=== PATIENT | male | born 1945 | race African-American/Black ===

== ENCOUNTER 2020-08-21 05:30 | Inpatient (IN) ==
[2020-08-21] MEDS ORDERED: cefTRIAXone 1,000 MG in Water for inj. (sterile) 10 ML IVP ONE (05:42)
[2020-08-21] MEDS ORDERED: Azithromycin 500 MG in 0.9 % Sodium Chloride 250 ML IVPB ONE (05:42)
[2020-08-21 06:06] LABS: Basophils % 0.1 %; Hematocrit 47.4 % (37.5-50.1); Hemoglobin 15.2 g/dL (12.9-16.9); Immature Granulocytes % 0.3 % (0-4); Lymphocytes % 11.5 %; Mean Corpuscular HGB Conc 32.1 g/dL (31.6-35.5); Mean Corpuscular Hemoglobin 30.2 pg (28.0-33.3); Mean Corpuscular Volume 94.2 fL (83.0-100.0); Mean Platelet Volume 10.5 fL (9.4-12.4); Monocytes # 0.8 K/mcL (0.0-1.3); Platelet Count 299 K/mcL (140-400); Red Blood Count 5.03 M/mcL (4.19-5.50); Red Cell Distribution Width 14.6 % (11.5-14.5); Segmented Neutrophils % 79.1 %; White Blood Count 8.8 K/mcL (4.3-11.1)
[2020-08-21 06:18] LABS: Prothrombin Time 11.7 Seconds (9.4-12.1)
[2020-08-21 06:20] LABS: Activated Partial Thrombo Time 28.3 Seconds (26.0-36.0)
[2020-08-21 06:27] LABS: Alanine Aminotransferase 41 Units/L (7-52); Albumin 4.2 g/dL (3.5-5.7); Alkaline Phosphatase 126 Units/L (34-104); Aspartate Amino Transferase 61 Units/L (13-39); BUN/Creatinine Ratio 29 (6-26); Bilirubin,Direct 0.1 mg/dL (0.0-0.2); Bilirubin,Indirect 0.6 mg/dL (0.0-1.0); Bilirubin,Total 0.7 mg/dL (0.3-1.0); Blood Urea Nitrogen 35 mg/dL (8-23); Calcium 9.9 mg/dL (8.6-10.3); Carbon Dioxide 23 mEq/L (23-29); Chloride 106 mEq/L (98-107); Globulin 4.2 g/dL (2.4-3.5); Glucose 134 mg/dL (70-105); Lactate Dehydrogenase 441 Units/L (140-271); Magnesium 2.6 mg/dL (1.6-2.6); Osmolality,Calculated 302 (280-300); Phosphorous 3.9 mg/dL (2.7-4.5); Potassium 5.1 mEq/L (3.5-5.1); Sodium 141 mEq/L (136-145); Total Protein 8.4 g/dL (6.4-8.9); Troponin I < 0.03 ng/mL (< 0.04); eGFR For African Americans > 60 (> 60); eGFR For Non-African Americans 58 (> 60)
[2020-08-21 06:34] LABS: ABG Base Excess 1 mEq/L (-2 to 3); ABG HCO3 29 mEq/L (21-27); ABG Oxygen Saturation 28 % (95-98); ABG PCO2 56 mmHg (35-45); ABG PH 7.32 pH Units (7.32-7.45); ABG PO2 21 mmHg (85-104); ABG TCO2 31 mEq/L (20-26)
[2020-08-21 06:39] LABS: Platelet Estimate Normal (Normal)
[2020-08-21 06:45] LABS: Ferritin 654 ng/mL (20-250)
[2020-08-21] MEDS ORDERED: methylPREDNISolone 125 MG/2 ML VIAL IVP ONE (06:47)
[2020-08-21] MEDS ORDERED: 0.9 % Sodium Chloride 1,000 ML IVC ONE (08:14)
[2020-08-21 08:38] LABS: ABG Base Excess 0 mEq/L (-2 to 3); ABG HCO3 25 mEq/L (21-27); ABG Oxygen Saturation 99 % (95-98); ABG PCO2 43 mmHg (35-45); ABG PH 7.37 pH Units (7.32-7.45); ABG PO2 120 mmHg (85-104); ABG TCO2 27 mEq/L (20-26); Blood Gas Pressure Support 12 cm H2O
[2020-08-21 08:45] LABS: C-Reactive Protein 49 mg/L (Less than 10)
[2020-08-21] MEDS ORDERED: Acetaminophen 650 MG RECTAL SUPP RC PRN (14:47)
[2020-08-21] MEDS ORDERED: Naloxone 0.4 MG/ML INJ IVP PRN (15:01)
[2020-08-21] MEDS ORDERED: HALOPERIDOL DECANOATE 200 MG IM SCH (15:15)
[2020-08-21] MEDS: Cefepime HCl 2,000 MG in Water for inj. (sterile) 20 ML IVP SCH (15:48)
[2020-08-21] MEDS: Doxycycline 100 MG in 0.9 % Sodium Chloride Mini Bag 100 ML IVPB SCH ×2 (15:58→21:24)
[2020-08-21] MEDS ORDERED: Piperacillin/Tazobactam 3.375 GM in 0.9 % Sodium Chloride Mini Bag 100 ML IVPB SCH (16:00)
[2020-08-21] MEDS ORDERED: Albuterol 2.5 MG/3 ML NEBULIZER IH SCH (16:00)
[2020-08-21] MEDS ORDERED: *HR* Metoprolol 5 MG/5 ML VIAL IVP PRN (16:22)
[2020-08-21] MEDS ORDERED: *HR* Dextrose 50 % in Water (Vial) 50 ML VIAL IVP PRN (17:55)
[2020-08-21] MEDS ORDERED: Dextrose Gel 15 GM/37.5 ML TUBE PO PRN ×2 (17:55)
[2020-08-21] MEDS ORDERED: D5% in Water 1,000 ML IVC PRN (17:55)
[2020-08-21] MEDS: Haloperidol Lactate 5 MG/ML VIAL IVP PRN (17:56)
[2020-08-21] MEDS: Insulin LISPRO 300 UNITS/3 ML VIAL SQ SCH (18:07)
[2020-08-21] MEDS: *HR* LORazepam 2 MG/ML VIAL IVP PRN (18:10)
[2020-08-21] MEDS: Dexmedetomidine HCl 400 MCG/100 ML MLS IVC SCH (19:31)
[2020-08-21] MEDS ORDERED: NON-FORMULARY MEDICATION 1 EACH EACH (Quetiapine Fumarate [Seroquel] 400 MG) PO SCH (21:00)
[2020-08-21] MEDS: Dorzolamide OPTH 10 ML BOTTLE BOTH EYES SCH (21:25)
[2020-08-21] MEDS: QUEtiapine Fumarate 100 MG, QUEtiapine Fumarate 300 MG PO SCH (22:06)
[2020-08-21] MEDS: *HR* LORazepam 0.5 MG TABLET PO SCH (22:06)
[2020-08-21] MEDS: Melatonin 3 MG TABLET PO SCH (22:06)
[2020-08-22] MEDS: Insulin LISPRO 300 UNITS/3 ML VIAL SQ SCH ×5 (00:18→23:58)
[2020-08-22] MEDS ORDERED: 0.9 % Sodium Chloride 250 ML ONE (00:53)
[2020-08-22] MEDS: Cefepime HCl 2,000 MG in Water for inj. (sterile) 20 ML IVP SCH ×3 (05:35→23:34)
[2020-08-22 05:58] LABS: Basophils # 0.1 K/mcL (0.0-0.2); Basophils % 1.1 %; Eosinophils % 0.1 %; Hematocrit 45.9 % (37.5-50.1); Hemoglobin 14.7 g/dL (12.9-16.9); Immature Granulocytes % 0.5 % (0-4); Lymphocytes # 1.4 K/mcL (0.6-4.6); Lymphocytes % 16.3 %; Mean Corpuscular Hemoglobin 30.3 pg (28.0-33.3); Mean Corpuscular Volume 94.6 fL (83.0-100.0); Mean Platelet Volume 10.3 fL (9.4-12.4); Monocytes # 0.6 K/mcL (0.0-1.3); Monocytes % 7.2 %; Neutrophils # 6.4 K/mcL (1.6-8.9); Platelet Count 212 K/mcL (140-400); Red Blood Count 4.85 M/mcL (4.19-5.50); Red Cell Distribution Width 14.6 % (11.5-14.5); Segmented Neutrophils % 74.8 %; White Blood Count 8.6 K/mcL (4.3-11.1)
[2020-08-22 06:19] LABS: INR 1.1; Prothrombin Time 12.3 Seconds (9.4-12.1)
[2020-08-22 06:37] LABS: Alanine Aminotransferase 41 Units/L (7-52); Albumin 3.7 g/dL (3.5-5.7); Alkaline Phosphatase 111 Units/L (34-104); Aspartate Amino Transferase 59 Units/L (13-39); BUN/Creatinine Ratio 32 (6-26); Bilirubin,Total 0.5 mg/dL (0.3-1.0); Blood Urea Nitrogen 32 mg/dL (8-23); Calcium 9.3 mg/dL (8.6-10.3); Carbon Dioxide 18 mEq/L (23-29); Chloride 111 mEq/L (98-107); Ferritin 542 ng/mL (20-250); Globulin 3.7 g/dL (2.4-3.5); Glucose 83 mg/dL (70-105); Osmolality,Calculated 298 (280-300); Potassium 4.6 mEq/L (3.5-5.1); Sodium 141 mEq/L (136-145); Total Protein 7.4 g/dL (6.4-8.9); eGFR For African Americans > 60 (> 60); eGFR For Non-African Americans > 60 (> 60)
[2020-08-22 06:44] LABS: Platelet Estimate Normal (Normal); Reactive Lymphocytes Present (Not Present)
[2020-08-22] MEDS: PARoxetine 30 MG TABLET PO SCH (08:48)
[2020-08-22] MEDS: Doxycycline 100 MG in 0.9 % Sodium Chloride Mini Bag 100 ML IVPB SCH ×2 (08:48→20:48)
[2020-08-22] MEDS: *HR* LORazepam 0.5 MG TABLET PO SCH ×3 (08:48→20:42)
[2020-08-22] MEDS: Pyridoxine (B-6) 50 MG TABLET PO SCH (08:49)
[2020-08-22] MEDS ORDERED: Doxycycline 100 MG in 0.9 % Sodium Chloride Mini Bag 100 ML IVPB SCH (09:00)
[2020-08-22] MEDS ORDERED: Dexamethasone 4 MG/ML VIAL IVP SCH (09:00)
[2020-08-22] MEDS: Dorzolamide OPTH 10 ML BOTTLE BOTH EYES SCH ×3 (09:08→20:48)
[2020-08-22] MEDS: QUEtiapine Fumarate 100 MG, QUEtiapine Fumarate 300 MG PO SCH ×2 (11:50→20:42)
[2020-08-22] MEDS ORDERED: NON-FORMULARY MEDICATION 1 EACH EACH (Quetiapine Fumarate [Seroquel] 400 MG) PO SCH (12:00)
[2020-08-22] MEDS: *HR* LORazepam 2 MG/ML VIAL IVP PRN ×3 (12:39→22:36)
[2020-08-22] MEDS: Dexmedetomidine HCl 400 MCG/100 ML MLS IVC SCH (14:08)
[2020-08-22] MEDS ORDERED: *HR* Enoxaparin 40 MG/0.4 ML SYRINGE SQ SCH (14:50)
[2020-08-22] MEDS ORDERED: *HR* Enoxaparin 30 MG/0.3 ML SYRINGE SQ ONE (17:45)
[2020-08-22] MEDS: Melatonin 3 MG TABLET PO SCH (20:42)
[2020-08-22] MEDS ORDERED: Furosemide 40 MG/4 ML VIAL IVP ONE (21:22)
[2020-08-23 04:27] LABS: ABG Base Excess -2 mEq/L (-2 to 3); ABG HCO3 22 mEq/L (21-27); ABG Oxygen Saturation 92 % (95-98); ABG PCO2 36 mmHg (35-45); ABG PH 7.39 pH Units (7.32-7.45); ABG PO2 65 mmHg (85-104); ABG TCO2 23 mEq/L (20-26)
[2020-08-23] MEDS: Insulin LISPRO 300 UNITS/3 ML VIAL SQ SCH ×3 (04:55→17:28)
[2020-08-23] MEDS: *HR* Enoxaparin 80 MG/0.8 ML SYRINGE SQ SCH ×2 (05:17→17:24)
[2020-08-23] MEDS: Pyridoxine (B-6) 50 MG TABLET PO SCH (07:42)
[2020-08-23] MEDS: PARoxetine 30 MG TABLET PO SCH (07:42)
[2020-08-23] MEDS: *HR* LORazepam 0.5 MG TABLET PO SCH ×3 (07:43→20:55)
[2020-08-23] MEDS: Dexamethasone Sodium Phos/PF 10 MG/ML VIAL IVP SCH (07:52)
[2020-08-23] MEDS: Cefepime HCl 2,000 MG in Water for inj. (sterile) 20 ML IVP SCH ×3 (07:52→23:44)
[2020-08-23] MEDS: Doxycycline 100 MG in 0.9 % Sodium Chloride Mini Bag 100 ML IVPB SCH ×2 (07:52→21:01)
[2020-08-23] MEDS: Haloperidol Lactate 5 MG/ML VIAL IVP PRN ×3 (07:53→20:07)
[2020-08-23] MEDS: *HR* LORazepam 2 MG/ML VIAL IVP PRN ×4 (07:53→20:07)
[2020-08-23] MEDS: Dorzolamide OPTH 10 ML BOTTLE BOTH EYES SCH ×3 (08:24→21:13)
[2020-08-23 10:37] LABS: Hemoglobin 14.6 g/dL (12.9-16.9); Mean Corpuscular HGB Conc 32.4 g/dL (31.6-35.5); Mean Corpuscular Hemoglobin 29.6 pg (28.0-33.3); Mean Corpuscular Volume 91.3 fL (83.0-100.0); Mean Platelet Volume 10.5 fL (9.4-12.4); Platelet Count 228 K/mcL (140-400); Red Blood Count 4.93 M/mcL (4.19-5.50); Red Cell Distribution Width 14.3 % (11.5-14.5); White Blood Count 10.1 K/mcL (4.3-11.1)
[2020-08-23 10:46] LABS: INR 1.2; Prothrombin Time 13.5 Seconds (9.4-12.1)
[2020-08-23 11:05] LABS: Alanine Aminotransferase 34 Units/L (7-52); Albumin 3.7 g/dL (3.5-5.7); Alkaline Phosphatase 113 Units/L (34-104); Aspartate Amino Transferase 53 Units/L (13-39); BUN/Creatinine Ratio 40 (6-26); Bilirubin,Total 0.6 mg/dL (0.3-1.0); Blood Urea Nitrogen 46 mg/dL (8-23); Calcium 9.3 mg/dL (8.6-10.3); Carbon Dioxide 18 mEq/L (23-29); Chloride 110 mEq/L (98-107); Globulin 3.8 g/dL (2.4-3.5); Glucose 134 mg/dL (70-105); Osmolality,Calculated 302 (280-300); Sodium 139 mEq/L (136-145); Total Protein 7.5 g/dL (6.4-8.9); eGFR For African Americans > 60 (> 60); eGFR For Non-African Americans > 60 (> 60)
[2020-08-23] MEDS: QUEtiapine Fumarate 100 MG, QUEtiapine Fumarate 300 MG PO SCH ×2 (11:46→20:55)
[2020-08-23 11:49] LABS: Lymphocytes # 1.8 K/mcL (0.6-4.6); Monocytes # 0.4 K/mcL (0.0-1.3); Neutrophils # 7.9 K/mcL (1.6-8.9)
[2020-08-23 11:50] LABS: Platelet Estimate Normal (Normal)
[2020-08-23] MEDS: Furosemide 40 MG/4 ML VIAL IVP SCH (16:24)
[2020-08-23] MEDS: Dexmedetomidine HCl 400 MCG/100 ML MLS IVC SCH ×2 (17:22→22:14)
[2020-08-23] MEDS: Melatonin 3 MG TABLET PO SCH (20:55)
[2020-08-24] MEDS: Insulin LISPRO 300 UNITS/3 ML VIAL SQ SCH ×4 (00:14→18:48)
[2020-08-24] MEDS: *HR* LORazepam 2 MG/ML VIAL IVP PRN ×2 (00:16→08:21)
[2020-08-24] MEDS: Haloperidol Lactate 5 MG/ML VIAL IVP PRN ×2 (02:05→08:20)
[2020-08-24 04:28] LABS: ABG Base Excess -4 mEq/L (-2 to 3); ABG HCO3 20 mEq/L (21-27); ABG Oxygen Saturation 84 % (95-98); ABG PCO2 33 mmHg (35-45); ABG PH 7.39 pH Units (7.32-7.45); ABG PO2 48 mmHg (85-104); ABG TCO2 21 mEq/L (20-26)
[2020-08-24] MEDS: *HR* Enoxaparin 80 MG/0.8 ML SYRINGE SQ SCH ×2 (05:33→19:10)
[2020-08-24 07:10] LABS: Basophils # 0.1 K/mcL (0.0-0.2); Basophils % 0.8 %; Hematocrit 48.9 % (37.5-50.1); Hemoglobin 15.8 g/dL (12.9-16.9); Immature Granulocytes % 0.5 % (0-4); Lymphocytes # 1.4 K/mcL (0.6-4.6); Lymphocytes % 13.6 %; Mean Corpuscular HGB Conc 32.3 g/dL (31.6-35.5); Mean Corpuscular Hemoglobin 29.4 pg (28.0-33.3); Mean Corpuscular Volume 91.1 fL (83.0-100.0); Mean Platelet Volume 10.5 fL (9.4-12.4); Monocytes # 0.7 K/mcL (0.0-1.3); Neutrophils # 8.3 K/mcL (1.6-8.9); Platelet Count 294 K/mcL (140-400); Red Blood Count 5.37 M/mcL (4.19-5.50); Red Cell Distribution Width 14.4 % (11.5-14.5); Segmented Neutrophils % 78.1 %; White Blood Count 10.6 K/mcL (4.3-11.1)
[2020-08-24 07:33] LABS: Albumin 4.2 g/dL (3.5-5.7); Bilirubin,Total 0.6 mg/dL (0.3-1.0); Globulin 4.4 g/dL (2.4-3.5); Potassium 4.9 mEq/L (3.5-5.1); Total Protein 8.6 g/dL (6.4-8.9)
[2020-08-24] MEDS: Doxycycline 100 MG in 0.9 % Sodium Chloride Mini Bag 100 ML IVPB SCH ×2 (08:19→20:21)
[2020-08-24] MEDS: Cefepime HCl 2,000 MG in Water for inj. (sterile) 20 ML IVP SCH ×2 (08:19→20:20)
[2020-08-24] MEDS: Furosemide 40 MG/4 ML VIAL IVP SCH (08:19)
[2020-08-24] MEDS: Dexamethasone Sodium Phos/PF 10 MG/ML VIAL IVP SCH (08:20)
[2020-08-24] MEDS: Dorzolamide OPTH 10 ML BOTTLE BOTH EYES SCH ×3 (09:00→22:23)
[2020-08-24] MEDS: *HR* LORazepam 0.5 MG TABLET PO SCH ×3 (10:54→20:16)
[2020-08-24] MEDS: PARoxetine 30 MG TABLET PO SCH (10:55)
[2020-08-24] MEDS: Pyridoxine (B-6) 50 MG TABLET PO SCH (10:57)
[2020-08-24] MEDS: QUEtiapine Fumarate 100 MG, QUEtiapine Fumarate 300 MG PO SCH ×2 (14:40→20:17)
[2020-08-24] MEDS: Dexmedetomidine HCl 400 MCG/100 ML MLS IVC SCH (18:47)
[2020-08-24] MEDS: Melatonin 3 MG TABLET PO SCH (20:17)
[2020-08-25] MEDS: Insulin LISPRO 300 UNITS/3 ML VIAL SQ SCH ×5 (00:46→23:51)
[2020-08-25] MEDS: *HR* Enoxaparin 80 MG/0.8 ML SYRINGE SQ SCH ×2 (05:35→17:10)
[2020-08-25 07:23] LABS: Basophils % 0.2 %; Hematocrit 51.8 % (37.5-50.1); Hemoglobin 16.6 g/dL (12.9-16.9); Immature Granulocytes % 0.3 % (0-4); Lymphocytes # 1.1 K/mcL (0.6-4.6); Lymphocytes % 9.5 %; Mean Corpuscular Hemoglobin 30.1 pg (28.0-33.3); Mean Corpuscular Volume 93.8 fL (83.0-100.0); Mean Platelet Volume 10.3 fL (9.4-12.4); Monocytes # 0.8 K/mcL (0.0-1.3); Monocytes % 6.4 %; Neutrophils # 9.8 K/mcL (1.6-8.9); Platelet Count 335 K/mcL (140-400); Red Blood Count 5.52 M/mcL (4.19-5.50); Red Cell Distribution Width 14.4 % (11.5-14.5); Segmented Neutrophils % 83.6 %; White Blood Count 11.7 K/mcL (4.3-11.1)
[2020-08-25 07:29] LABS: INR 1.2; Prothrombin Time 13.4 Seconds (9.4-12.1)
[2020-08-25] MEDS: Furosemide 40 MG/4 ML VIAL IVP SCH (07:43)
[2020-08-25] MEDS: Cefepime HCl 2,000 MG in Water for inj. (sterile) 20 ML IVP SCH ×2 (07:43→20:45)
[2020-08-25] MEDS: Dexamethasone Sodium Phos/PF 10 MG/ML VIAL IVP SCH (07:43)
[2020-08-25] MEDS: Doxycycline 100 MG in 0.9 % Sodium Chloride Mini Bag 100 ML IVPB SCH ×2 (07:44→20:44)
[2020-08-25 07:45] LABS: Albumin 4.1 g/dL (3.5-5.7); Bilirubin,Total 0.6 mg/dL (0.3-1.0); Calcium 9.8 mg/dL (8.6-10.3); Globulin 4.2 g/dL (2.4-3.5); Potassium 4.9 mEq/L (3.5-5.1); Total Protein 8.3 g/dL (6.4-8.9)
[2020-08-25] MEDS: *HR* LORazepam 0.5 MG TABLET PO SCH ×3 (07:45→19:16)
[2020-08-25] MEDS: QUEtiapine Fumarate 100 MG, QUEtiapine Fumarate 300 MG PO SCH ×2 (07:46→19:16)
[2020-08-25] MEDS: Pyridoxine (B-6) 50 MG TABLET PO SCH (07:46)
[2020-08-25] MEDS: Dorzolamide OPTH 10 ML BOTTLE BOTH EYES SCH ×3 (07:46→21:08)
[2020-08-25] MEDS: PARoxetine 30 MG TABLET PO SCH (07:46)
[2020-08-25] MEDS: Dexmedetomidine HCl 400 MCG/100 ML MLS IVC SCH ×2 (14:55→23:49)
[2020-08-25] MEDS: Melatonin 3 MG TABLET PO SCH (19:16)
[2020-08-25] MEDS: *HR* LORazepam 2 MG/ML VIAL IVP PRN (19:22)
[2020-08-26 04:50] LABS: VBG Ionized Calcium 1.18 mmol/L (1.15-1.35)
[2020-08-26 05:05] LABS: Basophils % 0.2 %; Eosinophils % 0.1 %; Hematocrit 48.6 % (37.5-50.1); Hemoglobin 15.7 g/dL (12.9-16.9); Immature Granulocytes % 0.5 % (0-4); Lymphocytes # 1.4 K/mcL (0.6-4.6); Lymphocytes % 13.7 %; Mean Corpuscular HGB Conc 32.3 g/dL (31.6-35.5); Mean Corpuscular Hemoglobin 30.2 pg (28.0-33.3); Mean Corpuscular Volume 93.5 fL (83.0-100.0); Mean Platelet Volume 10.7 fL (9.4-12.4); Monocytes # 0.5 K/mcL (0.0-1.3); Monocytes % 5.3 %; Neutrophils # 8.2 K/mcL (1.6-8.9); Platelet Count 299 K/mcL (140-400); Red Cell Distribution Width 14.5 % (11.5-14.5); Segmented Neutrophils % 80.2 %; White Blood Count 10.2 K/mcL (4.3-11.1)
[2020-08-26 05:18] LABS: Alanine Aminotransferase 28 Units/L (7-52); Albumin 3.7 g/dL (3.5-5.7); Albumin/Globulin Ratio 0.9 (1.1-2.2); Alkaline Phosphatase 110 Units/L (34-104); Aspartate Amino Transferase 29 Units/L (13-39); BUN/Creatinine Ratio 61 (6-26); Bilirubin,Total 0.5 mg/dL (0.3-1.0); Blood Urea Nitrogen 79 mg/dL (8-23); Calcium 9.7 mg/dL (8.6-10.3); Carbon Dioxide 18 mEq/L (23-29); Chloride 119 mEq/L (98-107); Globulin 4.1 g/dL (2.4-3.5); Glucose 204 mg/dL (70-105); Magnesium 3.4 mg/dL (1.6-2.6); Osmolality,Calculated 332 (280-300); Phosphorous 3.6 mg/dL (2.7-4.5); Potassium 4.9 mEq/L (3.5-5.1); Sodium 146 mEq/L (136-145); Total Protein 7.8 g/dL (6.4-8.9); eGFR For African Americans > 60 (> 60); eGFR For Non-African Americans 54 (> 60)
[2020-08-26] MEDS: *HR* Enoxaparin 80 MG/0.8 ML SYRINGE SQ SCH ×2 (06:10→17:57)
[2020-08-26] MEDS: Insulin LISPRO 300 UNITS/3 ML VIAL SQ SCH ×3 (06:12→17:58)
[2020-08-26] MEDS: Dexmedetomidine HCl 400 MCG/100 ML MLS IVC SCH ×3 (08:04→19:58)
[2020-08-26] MEDS: Cefepime HCl 2,000 MG in Water for inj. (sterile) 20 ML IVP SCH ×2 (08:22→20:43)
[2020-08-26] MEDS: Haloperidol Lactate 5 MG/ML VIAL IVP PRN ×2 (08:23→12:41)
[2020-08-26] MEDS: *HR* LORazepam 2 MG/ML VIAL IVP PRN ×3 (08:23→19:57)
[2020-08-26] MEDS: *HR* LORazepam 0.5 MG TABLET PO SCH (10:39)
[2020-08-26] MEDS: PARoxetine 30 MG TABLET PO SCH ×2 (10:39→15:56)
[2020-08-26] MEDS: Pyridoxine (B-6) 50 MG TABLET PO SCH (10:40)
[2020-08-26] MEDS: Dorzolamide OPTH 10 ML BOTTLE BOTH EYES SCH ×3 (10:40→21:27)
[2020-08-26] MEDS: Dexamethasone Sodium Phos/PF 10 MG/ML VIAL IVP SCH (10:41)
[2020-08-26] MEDS: Doxycycline 100 MG in 0.9 % Sodium Chloride Mini Bag 100 ML IVPB SCH ×2 (10:42→20:47)
[2020-08-26] MEDS: QUEtiapine Fumarate 100 MG, QUEtiapine Fumarate 300 MG PO SCH ×2 (11:41→20:52)
[2020-08-26] MEDS ORDERED: Haloperidol Lactate 5 MG/ML VIAL IM PRN (12:45)
[2020-08-26] MEDS ORDERED: *HR* Etomidate 20 MG/10 ML AMPUL IVP ONE (14:38)
[2020-08-26] MEDS ORDERED: *HR* Midazolam HCl 5 MG/5 ML VIAL IVP ONE (14:38)
[2020-08-26] MEDS: Melatonin 3 MG TABLET PO SCH (20:53)
[2020-08-26] MEDS ORDERED: 0.9 % Sodium Chloride 1,000 ML ONE (22:58)
[2020-08-27] MEDS: FentaNYL (PF) 1,000 MCG/100 ML IV.SOLN IVC SCH ×2 (00:05→06:34)
[2020-08-27 00:44] LABS: ABG Base Excess -9 mEq/L (-2 to 3); ABG HCO3 19 mEq/L (21-27); ABG Oxygen Saturation 100 % (95-98); ABG PCO2 48 mmHg (35-45); ABG PH 7.21 pH Units (7.32-7.45); ABG PO2 224 mmHg (85-104); ABG TCO2 21 mEq/L (20-26); Blood Gas Modality AF; Blood Gas VT 450 cc
[2020-08-27] MEDS: Norepinephrine 4 MG/254 ML IV.SOLN IVC SCH ×2 (01:45→11:59)
[2020-08-27] MEDS: Midazolam HCl 50 MG/100 ML IV.SOLN IVC SCH (02:19)
[2020-08-27 04:19] LABS: ABG Base Excess -10 mEq/L (-2 to 3); ABG HCO3 19 mEq/L (21-27); ABG Oxygen Saturation 94 % (95-98); ABG PCO2 50 mmHg (35-45); ABG PH 7.19 pH Units (7.32-7.45); ABG PO2 89 mmHg (85-104); ABG TCO2 20 mEq/L (20-26); Blood Gas Modality AF; Blood Gas VT 450 cc
[2020-08-27 04:43] LABS: VBG Ionized Calcium 1.21 mmol/L (1.15-1.35)
[2020-08-27 04:45] LABS: Basophils % 0.1 %; Hematocrit 51.3 % (37.5-50.1); Hemoglobin 15.5 g/dL (12.9-16.9); Immature Granulocytes % 0.4 % (0-4); Lymphocytes # 0.7 K/mcL (0.6-4.6); Lymphocytes % 3.9 %; Mean Corpuscular HGB Conc 30.2 g/dL (31.6-35.5); Mean Corpuscular Hemoglobin 29.2 pg (28.0-33.3); Mean Corpuscular Volume 96.8 fL (83.0-100.0); Mean Platelet Volume 10.6 fL (9.4-12.4); Monocytes # 0.6 K/mcL (0.0-1.3); Monocytes % 3.7 %; Neutrophils # 15.5 K/mcL (1.6-8.9); Platelet Count 311 K/mcL (140-400); Red Cell Distribution Width 15.3 % (11.5-14.5); Segmented Neutrophils % 91.9 %
[2020-08-27 04:52] LABS: White Blood Count 16.9 K/mcL (4.3-11.1)
[2020-08-27 05:04] LABS: Albumin 3.6 g/dL (3.5-5.7); Albumin/Globulin Ratio 0.9 (1.1-2.2); Bilirubin,Total 0.6 mg/dL (0.3-1.0); Calcium 9.6 mg/dL (8.6-10.3); Globulin 4.1 g/dL (2.4-3.5); Magnesium 3.4 mg/dL (1.6-2.6); Phosphorous 5.8 mg/dL (2.7-4.5); Potassium 5.6 mEq/L (3.5-5.1); Total Protein 7.7 g/dL (6.4-8.9)
[2020-08-27] MEDS: Insulin LISPRO 300 UNITS/3 ML VIAL SQ SCH ×4 (06:04→21:54)
[2020-08-27] MEDS: *HR* Enoxaparin 80 MG/0.8 ML SYRINGE SQ SCH (06:06)
[2020-08-27 09:17] LABS: ABG Base Excess -10 mEq/L (-2 to 3); ABG HCO3 20 mEq/L (21-27); ABG Oxygen Saturation 95 % (95-98); ABG PCO2 54 mmHg (35-45); ABG PH 7.17 pH Units (7.32-7.45); ABG PO2 95 mmHg (85-104); ABG TCO2 21 mEq/L (20-26); Blood Gas Modality AF; Blood Gas VT 450 cc
[2020-08-27] MEDS: Cefepime HCl 2,000 MG in Water for inj. (sterile) 20 ML IVP SCH (09:34)
[2020-08-27] MEDS: Doxycycline 100 MG in 0.9 % Sodium Chloride Mini Bag 100 ML IVPB SCH (09:34)
[2020-08-27] MEDS: Dexamethasone Sodium Phos/PF 10 MG/ML VIAL IVP SCH (09:36)
[2020-08-27] MEDS: PARoxetine 30 MG TABLET PO SCH (09:36)
[2020-08-27] MEDS: Dorzolamide OPTH 10 ML BOTTLE BOTH EYES SCH ×3 (09:36→21:53)
[2020-08-27] MEDS: Pyridoxine (B-6) 50 MG TABLET PO SCH (09:36)
[2020-08-27] MEDS: Albumin Human 5% 12.5 GM/250 ML IV.SOLN IVC SCH ×2 (09:40→14:42)
[2020-08-27] MEDS ORDERED: *HR* Heparin 5,000 UNIT/ML VIAL IVP PRN ×2 (09:49)
[2020-08-27] MEDS: FentaNYL (PF) 2,500 MCG/50 ML IV.SOLN IVC SCH ×2 (12:16→19:35)
[2020-08-27 13:01] LABS: INR 1.3; Prothrombin Time 14.4 Seconds (9.4-12.1)
[2020-08-27 13:16] LABS: Heparin anti-factor XA UFH 1.84 IU/mL (0.30-0.70)
[2020-08-27 13:33] LABS: BUN/Creatinine Ratio 48 (6-26); Blood Urea Nitrogen 104 mg/dL (8-23); Calcium 9.4 mg/dL (8.6-10.3); Carbon Dioxide 15 mEq/L (23-29); Chloride 120 mEq/L (98-107); Glucose 218 mg/dL (70-105); Osmolality,Calculated 341 (280-300); Sodium 146 mEq/L (136-145); eGFR For African Americans 37 (> 60); eGFR For Non-African Americans 30 (> 60)
[2020-08-27 14:20] LABS: Troponin I < 0.03 ng/mL (< 0.04)
[2020-08-27] MEDS ORDERED: *HR* Dextrose 50 % in Water (Vial) 50 ML VIAL IVP ONE (14:22)
[2020-08-27] MEDS ORDERED: Insulin Human Regular 10 UNIT in 0.9 % Sodium Chloride 10 ML IV ONE (14:22)
[2020-08-27] MEDS: Calcium Gluconate 1gm/50mL 1 GM/50 ML BAG IVPB SCH ×2 (14:52→15:28)
[2020-08-27 15:53] LABS: ABG Base Excess -7 mEq/L (-2 to 3); ABG HCO3 21 mEq/L (21-27); ABG Oxygen Saturation 99 % (95-98); ABG PCO2 45 mmHg (35-45); ABG PH 7.26 pH Units (7.32-7.45); ABG PO2 135 mmHg (85-104); ABG TCO2 22 mEq/L (20-26); Blood Gas Modality AF; Blood Gas VT 450 cc
[2020-08-27 19:25] LABS: Calcium 9.6 mg/dL (8.6-10.3)
[2020-08-27 19:43] LABS: Uric Acid 10.7 mg/dL (2.3-7.6)
[2020-08-27] MEDS: Cefepime HCl 1,000 MG in Water for inj. (sterile) 10 ML IVP SCH (19:44)
[2020-08-27 20:25] LABS: Amorphous Sediment,Urine Few per hpf (None-Few); Bilirubin,Urine Negative (Negative); Blood,Urine Moderate (Negative); Calcium Oxalate Crystals,Urine Present; Clarity,Urine Ex.Turbid (Clear); Color,Urine Yellow (Yellow); Glucose,Urine (UA) 50 mg/dL (Normal); Granular Casts,Urine Moderate per lpf (None Seen); Hyaline Casts,Urine Few per lpf (None Seen); Ketones,Urine Negative (Negative); Leukocyte Esterase,Urine Negative (Negative); Mucus,Urine Few per lpf (None-Few); Nitrite,Urine Negative (Negative); Protein,Urine 100 mg/dL (Neg-Trace); Renal Epithelial Cells,Urine Few per hpf (None-Few); Specific Gravity,Urine 1.024 (1.010-1.025); Transitional Epi Cells,Urine Few per hpf (None-Few); Urobilinogen,Urine Normal (Normal); WBC,Urine 50-100 per hpf (0-3)
[2020-08-27] MEDS: Melatonin 3 MG TABLET PO SCH (21:53)
[2020-08-27] MEDS: Heparin 25,000UNIT/250ML 1/2NS 25,000 UNIT/250 ML IV.SOLN IVC SCH (21:54)
[2020-08-28] MEDS: Insulin LISPRO 300 UNITS/3 ML VIAL SQ SCH ×4 (00:34→17:25)
[2020-08-28 04:50] LABS: VBG Ionized Calcium 1.22 mmol/L (1.15-1.35)
[2020-08-28 04:58] LABS: ABG Base Excess -9 mEq/L (-2 to 3); ABG HCO3 19 mEq/L (21-27); ABG Oxygen Saturation 71 % (95-98); ABG PCO2 49 mmHg (35-45); ABG PO2 46 mmHg (85-104); ABG TCO2 21 mEq/L (20-26); Blood Gas Modality ASSIST CONTROL; Blood Gas VT 450 cc
[2020-08-28 05:04] LABS: Basophils % 0.1 %; Hematocrit 39.3 % (37.5-50.1); Immature Granulocytes % 0.4 % (0-4); Lymphocytes # 0.6 K/mcL (0.6-4.6); Lymphocytes % 4.6 %; Mean Corpuscular HGB Conc 30.3 g/dL (31.6-35.5); Mean Corpuscular Hemoglobin 29.5 pg (28.0-33.3); Mean Corpuscular Volume 97.3 fL (83.0-100.0); Mean Platelet Volume 11.1 fL (9.4-12.4); Monocytes # 0.6 K/mcL (0.0-1.3); Monocytes % 4.2 %; Neutrophils # 12.5 K/mcL (1.6-8.9); Nucleated Red Blood Cells 0.1 /100 WBC (0); Platelet Count 226 K/mcL (140-400); Red Blood Count 4.04 M/mcL (4.19-5.50); Red Cell Distribution Width 15.7 % (11.5-14.5); Segmented Neutrophils % 90.7 %; White Blood Count 13.8 K/mcL (4.3-11.1)
[2020-08-28] MEDS: Cefepime HCl 1,000 MG in Water for inj. (sterile) 10 ML IVP SCH ×2 (05:08→17:10)
[2020-08-28 05:10] LABS: INR 1.2; Prothrombin Time 13.9 Seconds (9.4-12.1)
[2020-08-28 05:11] LABS: Albumin 3.3 g/dL (3.5-5.7); Albumin/Globulin Ratio 1.1 (1.1-2.2); Bilirubin,Total 0.4 mg/dL (0.3-1.0); Calcium 8.8 mg/dL (8.6-10.3); Globulin 3.1 g/dL (2.4-3.5); Potassium 4.8 mEq/L (3.5-5.1); Total Protein 6.4 g/dL (6.4-8.9)
[2020-08-28 05:19] LABS: Hemoglobin 11.9 g/dL (12.9-16.9)
[2020-08-28 06:17] LABS: Magnesium 3.2 mg/dL (1.6-2.6); Phosphorous 5.2 mg/dL (2.7-4.5)
[2020-08-28] MEDS: Dorzolamide OPTH 10 ML BOTTLE BOTH EYES SCH ×3 (08:12→20:01)
[2020-08-28 09:52] LABS: ABG Base Excess -9 mEq/L (-2 to 3); ABG HCO3 19 mEq/L (21-27); ABG Oxygen Saturation 88 % (95-98); ABG PCO2 50 mmHg (35-45); ABG PH 7.19 pH Units (7.32-7.45); ABG PO2 67 mmHg (85-104); ABG TCO2 21 mEq/L (20-26); Blood Gas VT 450 cc
[2020-08-28] MEDS: PARoxetine 30 MG TABLET PO SCH (11:12)
[2020-08-28] MEDS: Pyridoxine (B-6) 50 MG TABLET PO SCH (11:12)
[2020-08-28] MEDS: Dexamethasone Sodium Phos/PF 10 MG/ML VIAL IVP SCH (11:17)
[2020-08-28] MEDS: Norepinephrine 4 MG/254 ML IV.SOLN IVC SCH ×2 (11:24→20:02)
[2020-08-28] MEDS: Heparin 25,000UNIT/250ML 1/2NS 25,000 UNIT/250 ML IV.SOLN IVC SCH (11:26)
[2020-08-28] MEDS ORDERED: Vancomycin 1 EACH in 0.9 % Sodium Chloride 250 ML IVPB PRN (12:00)
[2020-08-28] MEDS: FentaNYL (PF) 2,500 MCG/50 ML IV.SOLN IVC SCH (13:08)
[2020-08-28 16:24] LABS: VBG Ionized Calcium 1.14 mmol/L (1.15-1.35)
[2020-08-28 16:40] LABS: Calcium 8.4 mg/dL (8.6-10.3); Magnesium 2.9 mg/dL (1.6-2.6); Phosphorous 5.8 mg/dL (2.7-4.5); Potassium 5.5 mEq/L (3.5-5.1)
[2020-08-28] MEDS: Albumin Human 5% 12.5 GM/250 ML IV.SOLN IVC SCH ×2 (17:09→18:55)
[2020-08-28] MEDS ORDERED: 0.9 % Sodium Chloride 500 ML ONE (22:42)
[2020-08-29] MEDS: Insulin LISPRO 300 UNITS/3 ML VIAL SQ SCH ×4 (00:33→18:13)
[2020-08-29] MEDS: FentaNYL (PF) 2,500 MCG/50 ML IV.SOLN IVC SCH ×2 (03:20→22:00)
[2020-08-29 04:34] LABS: ABG Base Excess -10 mEq/L (-2 to 3); ABG HCO3 18 mEq/L (21-27); ABG Oxygen Saturation 97 % (95-98); ABG PCO2 42 mmHg (35-45); ABG PH 7.22 pH Units (7.32-7.45); ABG PO2 108 mmHg (85-104); ABG TCO2 19 mEq/L (20-26); Blood Gas Modality AF; Blood Gas VT 450 cc
[2020-08-29 05:00] LABS: VBG Ionized Calcium 1.09 mmol/L (1.15-1.35)
[2020-08-29 05:11] LABS: Basophils % 0.1 %; Hematocrit 34.6 % (37.5-50.1); Hemoglobin 10.4 g/dL (12.9-16.9); Immature Granulocytes % 0.6 % (0-4); Lymphocytes # 0.7 K/mcL (0.6-4.6); Lymphocytes % 4.2 %; Mean Corpuscular HGB Conc 30.1 g/dL (31.6-35.5); Mean Corpuscular Hemoglobin 29.1 pg (28.0-33.3); Mean Corpuscular Volume 96.9 fL (83.0-100.0); Mean Platelet Volume 11.5 fL (9.4-12.4); Monocytes # 0.7 K/mcL (0.0-1.3); Neutrophils # 15.5 K/mcL (1.6-8.9); Platelet Count 207 K/mcL (140-400); Red Blood Count 3.57 M/mcL (4.19-5.50); Red Cell Distribution Width 16.3 % (11.5-14.5); Segmented Neutrophils % 91.1 %
[2020-08-29 05:33] LABS: Albumin 3.4 g/dL (3.5-5.7); Albumin/Globulin Ratio 1.2 (1.1-2.2); Bilirubin,Total 0.4 mg/dL (0.3-1.0); Calcium 8.6 mg/dL (8.6-10.3); Globulin 2.9 g/dL (2.4-3.5); Potassium 5.6 mEq/L (3.5-5.1); Total Protein 6.3 g/dL (6.4-8.9)
[2020-08-29] MEDS: Cefepime HCl 1,000 MG in Water for inj. (sterile) 10 ML IVP SCH ×2 (05:59→18:14)
[2020-08-29] MEDS: Pantoprazole 40 MG VIAL IVP SCH (05:59)
[2020-08-29] MEDS: Norepinephrine 4 MG/254 ML IV.SOLN IVC SCH (07:33)
[2020-08-29] MEDS: Midazolam HCl 50 MG/100 ML IV.SOLN IVC SCH ×3 (07:33→20:58)
[2020-08-29] MEDS: Dexamethasone Sodium Phos/PF 10 MG/ML VIAL IVP SCH (07:59)
[2020-08-29] MEDS: Pyridoxine (B-6) 50 MG TABLET PO SCH (07:59)
[2020-08-29] MEDS: Dorzolamide OPTH 10 ML BOTTLE BOTH EYES SCH ×3 (08:31→20:54)
[2020-08-29 08:50] LABS: Heparin anti-factor XA UFH 0.38 IU/mL (0.30-0.70); INR 1.2; Prothrombin Time 13.6 Seconds (9.4-12.1)
[2020-08-29 08:52] LABS: Activated Partial Thrombo Time 41.1 Seconds (26.0-36.0)
[2020-08-29] MEDS ORDERED: 0.9 % Sodium Chloride 500 ML ONE (08:56)
[2020-08-29] MEDS ORDERED: *HR* Heparin 5,000 UNIT/ML VIAL ONE (09:27)
[2020-08-29 12:55] LABS: Heparin anti-factor XA UFH 0.59 IU/mL (0.30-0.70); INR 1.3; Prothrombin Time 14.6 Seconds (9.4-12.1)
[2020-08-29] MEDS ORDERED: 0.9 % Sodium Chloride 1,000 ML ONE (13:05)
[2020-08-29 13:07] LABS: Phosphorous 7.3 mg/dL (2.7-4.5)
[2020-08-29] MEDS: Heparin 25,000UNIT/250ML 1/2NS 25,000 UNIT/250 ML IV.SOLN IVC SCH (13:30)
[2020-08-29] MEDS ORDERED: *HR* Alteplase (Cathflo) 2 MG VIAL IVP PRN (13:41)
[2020-08-29] MEDS ORDERED: 0.9 % Sodium Chloride 1,000 ML PRIME ONE ×2 (13:41)
[2020-08-29] MEDS ORDERED: *HR* Heparin 5,000 UNIT/ML VIAL CRRT PRN (13:41)
[2020-08-29] MEDS ORDERED: Vancomycin 1,250 MG/262.5 ML IV.SOLN IVPB ONE (14:00)
[2020-08-29] MEDS: PrismaSATE BGK 4/2.5 5,000 ML CRRT SCH ×4 (14:52→19:40)
[2020-08-30] MEDS: Artificial Tears SOLN 15 ML BOTTLE BOTH EYES SCH ×5 (00:19→19:52)
[2020-08-30] MEDS: PrismaSATE BGK 4/2.5 5,000 ML CRRT SCH ×12 (04:35→22:50)
[2020-08-30 04:36] LABS: ABG Base Excess -4 mEq/L (-2 to 3); ABG HCO3 23 mEq/L (21-27); ABG Oxygen Saturation 89 % (95-98); ABG PCO2 49 mmHg (35-45); ABG PH 7.28 pH Units (7.32-7.45); ABG PO2 64 mmHg (85-104); ABG TCO2 24 mEq/L (20-26); Blood Gas VT 450 cc
[2020-08-30 05:04] LABS: VBG Ionized Calcium 1.04 mmol/L (1.15-1.35)
[2020-08-30 05:05] LABS: Basophils % 0.2 %; Eosinophils % 0.1 %; Hematocrit 36.1 % (37.5-50.1); Hemoglobin 11.3 g/dL (12.9-16.9); Immature Granulocytes % 0.6 % (0-4); Lymphocytes # 0.6 K/mcL (0.6-4.6); Lymphocytes % 3.4 %; Mean Corpuscular HGB Conc 31.3 g/dL (31.6-35.5); Mean Corpuscular Hemoglobin 29.3 pg (28.0-33.3); Mean Corpuscular Volume 93.5 fL (83.0-100.0); Mean Platelet Volume 11.8 fL (9.4-12.4); Monocytes # 0.8 K/mcL (0.0-1.3); Monocytes % 4.4 %; Neutrophils # 17.1 K/mcL (1.6-8.9); Nucleated Red Blood Cells 0.3 /100 WBC (0); Platelet Count 216 K/mcL (140-400); Red Blood Count 3.86 M/mcL (4.19-5.50); Red Cell Distribution Width 16.5 % (11.5-14.5); Segmented Neutrophils % 91.3 %; White Blood Count 18.7 K/mcL (4.3-11.1)
[2020-08-30] MEDS: Norepinephrine 4 MG/254 ML IV.SOLN IVC SCH ×2 (05:15→22:25)
[2020-08-30 05:21] LABS: Albumin 3.5 g/dL (3.5-5.7); Bilirubin,Total 0.5 mg/dL (0.3-1.0); Calcium 8.2 mg/dL (8.6-10.3); Globulin 3.5 g/dL (2.4-3.5); Magnesium 2.7 mg/dL (1.6-2.6); Phosphorous 4.3 mg/dL (2.7-4.5); Potassium 5.1 mEq/L (3.5-5.1)
[2020-08-30] MEDS ORDERED: Calcium Gluconate 1gm/50mL 1 GM/50 ML BAG IVPB ONE (05:55)
[2020-08-30] MEDS: Cefepime HCl 1,000 MG in Water for inj. (sterile) 10 ML IVP SCH ×2 (06:01→18:00)
[2020-08-30] MEDS: Pantoprazole 40 MG VIAL IVP SCH (06:02)
[2020-08-30] MEDS: Insulin LISPRO 300 UNITS/3 ML VIAL SQ SCH ×4 (06:37→18:20)
[2020-08-30] MEDS ORDERED: 0.9 % Sodium Chloride 250 ML ONE (08:06)
[2020-08-30] MEDS: Dorzolamide OPTH 10 ML BOTTLE BOTH EYES SCH ×3 (08:08→19:52)
[2020-08-30] MEDS: Dexamethasone Sodium Phos/PF 10 MG/ML VIAL IVP SCH (08:08)
[2020-08-30] MEDS: Pyridoxine (B-6) 50 MG TABLET PO SCH (08:08)
[2020-08-30] MEDS: Chlorhexidine Rinse 15 ML MOUTHWASH MM SCH ×2 (08:08→19:52)
[2020-08-30] MEDS: Heparin 25,000UNIT/250ML 1/2NS 25,000 UNIT/250 ML IV.SOLN IVC SCH (08:08)
[2020-08-30] MEDS: FentaNYL (PF) 2,500 MCG/50 ML IV.SOLN IVC SCH (15:12)
[2020-08-30 15:23] LABS: VBG Ionized Calcium 1.05 mmol/L (1.15-1.35)
[2020-08-30] MEDS: Calcium Gluconate 1gm/50mL 1 GM/50 ML BAG IVPB SCH ×2 (15:26→16:20)
[2020-08-30] MEDS: Midazolam HCl 50 MG/100 ML IV.SOLN IVC SCH (19:53)
[2020-08-31] MEDS: 0.9 % Sodium Chloride 1,000 ML PRIME SCH (00:45)
[2020-08-31 03:48] LABS: Basophils % 0.1 %; Eosinophils % 0.2 %; Hematocrit 34.4 % (37.5-50.1); Immature Granulocytes % 0.7 % (0-4); Lymphocytes # 0.7 K/mcL (0.6-4.6); Lymphocytes % 4.3 %; Mean Corpuscular Hemoglobin 30.4 pg (28.0-33.3); Monocytes # 1.2 K/mcL (0.0-1.3); Monocytes % 6.9 %; Neutrophils # 14.5 K/mcL (1.6-8.9); Platelet Count 187 K/mcL (140-400); Red Blood Count 3.62 M/mcL (4.19-5.50); Red Cell Distribution Width 16.2 % (11.5-14.5); Segmented Neutrophils % 87.8 %; White Blood Count 16.6 K/mcL (4.3-11.1)
[2020-08-31 03:53] LABS: VBG Ionized Calcium 1.04 mmol/L (1.15-1.35)
[2020-08-31] MEDS: PrismaSATE BGK 4/2.5 5,000 ML CRRT SCH ×10 (04:00→22:15)
[2020-08-31 04:09] LABS: Albumin 3.5 g/dL (3.5-5.7); Albumin/Globulin Ratio 1.1 (1.1-2.2); Bilirubin,Total 0.4 mg/dL (0.3-1.0); Calcium 8.4 mg/dL (8.6-10.3); Globulin 3.3 g/dL (2.4-3.5); Magnesium 2.7 mg/dL (1.6-2.6); Phosphorous 4.1 mg/dL (2.7-4.5); Potassium 5.3 mEq/L (3.5-5.1); Total Protein 6.8 g/dL (6.4-8.9)
[2020-08-31] MEDS: Cefepime HCl 1,000 MG in Water for inj. (sterile) 10 ML IVP SCH ×2 (05:06→18:02)
[2020-08-31] MEDS: Pantoprazole 40 MG VIAL IVP SCH (05:07)
[2020-08-31] MEDS: Calcium Gluconate 1gm/50mL 1 GM/50 ML BAG IVPB SCH ×4 (05:08→15:37)
[2020-08-31 05:29] LABS: ABG Base Excess -2 mEq/L (-2 to 3); ABG HCO3 26 mEq/L (21-27); ABG Oxygen Saturation 93 % (95-98); ABG PCO2 56 mmHg (35-45); ABG PH 7.27 pH Units (7.32-7.45); ABG PO2 77 mmHg (85-104); ABG TCO2 27 mEq/L (20-26); Blood Gas VT 450 cc
[2020-08-31] MEDS: Insulin LISPRO 300 UNITS/3 ML VIAL SQ SCH ×4 (05:29→18:32)
[2020-08-31] MEDS: Dexamethasone Sodium Phos/PF 10 MG/ML VIAL IVP SCH (08:07)
[2020-08-31] MEDS: Artificial Tears SOLN 15 ML BOTTLE BOTH EYES SCH ×4 (08:07→19:44)
[2020-08-31] MEDS: Pyridoxine (B-6) 50 MG TABLET PO SCH (08:07)
[2020-08-31] MEDS: Chlorhexidine Rinse 15 ML MOUTHWASH MM SCH ×2 (08:07→19:45)
[2020-08-31] MEDS: Heparin 25,000UNIT/250ML 1/2NS 25,000 UNIT/250 ML IV.SOLN IVC SCH ×2 (08:08→17:05)
[2020-08-31] MEDS: Dorzolamide OPTH 10 ML BOTTLE BOTH EYES SCH ×3 (08:08→19:44)
[2020-08-31] MEDS: FentaNYL (PF) 2,500 MCG/50 ML IV.SOLN IVC SCH ×2 (11:18→19:40)
[2020-08-31] MEDS: Norepinephrine 4 MG/254 ML IV.SOLN IVC SCH (16:44)
[2020-08-31] MEDS: Docusate Oral Soln 100 MG/10 ML UDC GTUBE SCH (19:45)
[2020-09-01] MEDS: PrismaSATE BGK 4/2.5 5,000 ML CRRT SCH ×10 (03:00→20:50)
[2020-09-01 04:20] LABS: VBG Ionized Calcium 1.06 mmol/L (1.15-1.35)
[2020-09-01 04:28] LABS: Basophils # 0.1 K/mcL (0.0-0.2); Basophils % 0.3 %; Eosinophils % 0.2 %; Hematocrit 39.2 % (37.5-50.1); Hemoglobin 12.3 g/dL (12.9-16.9); Immature Granulocytes % 0.8 % (0-4); Mean Corpuscular HGB Conc 31.4 g/dL (31.6-35.5); Mean Corpuscular Hemoglobin 30.1 pg (28.0-33.3); Mean Corpuscular Volume 96.1 fL (83.0-100.0); Mean Platelet Volume 12.8 fL (9.4-12.4); Monocytes # 1.9 K/mcL (0.0-1.3); Neutrophils # 15.9 K/mcL (1.6-8.9); Nucleated Red Blood Cells 1.6 /100 WBC (0); Platelet Count 224 K/mcL (140-400); Red Blood Count 4.08 M/mcL (4.19-5.50); Segmented Neutrophils % 83.7 %
[2020-09-01 04:46] LABS: Magnesium 2.9 mg/dL (1.6-2.6); Phosphorous 3.4 mg/dL (2.7-4.5)
[2020-09-01 04:47] LABS: Albumin 3.9 g/dL (3.5-5.7); Albumin/Globulin Ratio 0.9 (1.1-2.2); Bilirubin,Total 0.5 mg/dL (0.3-1.0); Calcium 9.2 mg/dL (8.6-10.3); Globulin 4.2 g/dL (2.4-3.5); Potassium 5.2 mEq/L (3.5-5.1); Total Protein 8.1 g/dL (6.4-8.9)
[2020-09-01 05:08] LABS: ABG Base Excess -2 mEq/L (-2 to 3); ABG HCO3 26 mEq/L (21-27); ABG Oxygen Saturation 88 % (95-98); ABG PCO2 61 mmHg (35-45); ABG PH 7.24 pH Units (7.32-7.45); ABG PO2 66 mmHg (85-104); ABG TCO2 28 mEq/L (20-26); Blood Gas Modality ASSIST CONTROL; Blood Gas VT 450 cc
[2020-09-01] MEDS: Insulin LISPRO 300 UNITS/3 ML VIAL SQ SCH ×5 (05:26→23:38)
[2020-09-01] MEDS: Cefepime HCl 1,000 MG in Water for inj. (sterile) 10 ML IVP SCH (05:26)
[2020-09-01] MEDS: Pantoprazole 40 MG VIAL IVP SCH (05:28)
[2020-09-01] MEDS: Calcium Gluconate 1gm/50mL 1 GM/50 ML BAG IVPB SCH ×2 (05:47→06:48)
[2020-09-01] MEDS ORDERED: Vancomycin 1,500 MG/265 ML IV.SOLN IVPB ONE ×2 (06:00→09:00)
[2020-09-01] MEDS: FentaNYL (PF) 2,500 MCG/50 ML IV.SOLN IVC SCH ×2 (06:56→20:45)
[2020-09-01] MEDS: Norepinephrine 4 MG/254 ML IV.SOLN IVC SCH ×2 (07:05→12:00)
[2020-09-01] MEDS: Pyridoxine (B-6) 50 MG TABLET PO SCH (08:53)
[2020-09-01] MEDS: Artificial Tears SOLN 15 ML BOTTLE BOTH EYES SCH ×4 (08:53→19:41)
[2020-09-01] MEDS: Chlorhexidine Rinse 15 ML MOUTHWASH MM SCH ×2 (08:53→19:41)
[2020-09-01] MEDS: Dorzolamide OPTH 10 ML BOTTLE BOTH EYES SCH ×3 (08:54→19:41)
[2020-09-01] MEDS: Norepinephrine 8 MG in 0.9 % Sodium Chloride 250 ML IVC SCH ×2 (16:32→21:10)
[2020-09-01] MEDS ORDERED: Vasopressin 40 UNIT in D5% in Water 100 ML IVC SCH (17:15)
[2020-09-01] MEDS: *HR* Heparin 5,000 UNIT/ML VIAL SQ SCH (17:58)
[2020-09-01] MEDS: Cefepime HCl 2,000 MG in Water for inj. (sterile) 20 ML IVP SCH (17:59)
[2020-09-01] MEDS: Docusate Oral Soln 100 MG/10 ML UDC GTUBE SCH (19:41)
[2020-09-01] MEDS: Phenylephrine 10 MG in 0.9 % Sodium Chloride 250 ML IVC SCH ×3 (20:08→23:35)
[2020-09-01] MEDS ORDERED: Norepinephrine 16 MG in 0.9 % Sodium Chloride 500 ML IVC SCH (23:45)
[2020-09-02] MEDS: Phenylephrine 50 MG in 0.9 % Sodium Chloride 250 ML IVC SCH ×2 (01:30→05:47)
[2020-09-02] MEDS: 0.9 % Sodium Chloride 1,000 ML PRIME SCH (01:30)
[2020-09-02] MEDS: PrismaSATE BGK 4/2.5 5,000 ML CRRT SCH ×2 (02:45→02:47)
[2020-09-02 04:04] LABS: Hematocrit 38.6 % (37.5-50.1); Mean Corpuscular HGB Conc 31.1 g/dL (31.6-35.5); Mean Corpuscular Hemoglobin 30.8 pg (28.0-33.3); Mean Platelet Volume 12.5 fL (9.4-12.4); Platelet Count 183 K/mcL (140-400); Red Cell Distribution Width 16.3 % (11.5-14.5); White Blood Count 18.6 K/mcL (4.3-11.1)
[2020-09-02 04:08] LABS: VBG Ionized Calcium 1.06 mmol/L (1.15-1.35)
[2020-09-02 04:23] LABS: Albumin 3.3 g/dL (3.5-5.7); Albumin/Globulin Ratio 0.8 (1.1-2.2); Bilirubin,Total 0.7 mg/dL (0.3-1.0); Calcium 8.4 mg/dL (8.6-10.3); Globulin 3.9 g/dL (2.4-3.5); Potassium 5.6 mEq/L (3.5-5.1); Total Protein 7.2 g/dL (6.4-8.9)
[2020-09-02 04:24] LABS: Magnesium 2.7 mg/dL (1.6-2.6); Phosphorous 4.3 mg/dL (2.7-4.5)
[2020-09-02] MEDS: Insulin LISPRO 300 UNITS/3 ML VIAL SQ SCH (04:35)
[2020-09-02] MEDS: Cefepime HCl 2,000 MG in Water for inj. (sterile) 20 ML IVP SCH (05:12)
[2020-09-02] MEDS: Pantoprazole 40 MG VIAL IVP SCH (05:13)
[2020-09-02] MEDS: *HR* Heparin 5,000 UNIT/ML VIAL SQ SCH (05:14)
[2020-09-02 05:58] LABS: Anisocytosis 1+ (Not Present); Lymphocytes # 1.1 K/mcL (0.6-4.6); Monocytes # 0.4 K/mcL (0.0-1.3); Neutrophils # 16.4 K/mcL (1.6-8.9); Platelet Estimate Normal (Normal); Poikilocytosis 1+ (Not Present); Toxic Granulation Present (Not Present); Toxic Vacuolation Present (Not Present)
[2020-09-02 07:53] VITALS: BP 65/33
[2020-09-02] MEDS ORDERED: *HR* LORazepam 2 MG/ML VIAL IVP PRN (09:32)
== END 2020-09-02 07:55 | disposition expired | DRG 207 ==
LOC: EMEROOARM 05:30 → 2NENU 13:20
PROVIDERS: ADMIT Internal Medicine; ATTEND Internal Medicine